=== PATIENT | male | born 1965 | race Caucasian/White ===

== ENCOUNTER 2018-04-11 13:39 | Emergency (ER) | payer MEDICAID ==
[~2018-04-11] VITALS: Ht 172.7 cm; Wt 103.0 kg
[~2018-04-11 13:39] MED LIST: DONNATAL1 TAB PO; PRILOSEC40 MG PO
[2018-04-11 14:00] VITALS: Ht 172.7 cm; Wt 103.0 kg
[2018-04-11 16:22] VITALS: BP 136/86
== END 2018-04-11 16:22 | disposition home or self-care (01) ==
LOC: ED 13:39
DX: S39.012A Strain of muscle, fascia and tendon of lower back, initial encounter (principal); X58.XXXA Exposure to other specified factors, initial encounter; Y93.89 Activity, other specified; Y92.89 Other specified places as the place of occurrence of the external cause; Y99.8 Other external cause status
CPT/HCPCS: J1885

== ENCOUNTER 2018-05-31 17:15 | Emergency (ER) | payer SELFPAY ==
[~2018-05-31] VITALS: Ht 170.2 cm; Wt 103.0 kg
[2018-05-31 17:19] VITALS: Ht 170.2 cm; Wt 103.0 kg
[2018-05-31 18:16] LABS: BASOPHIL % 0.2 % (0-2); PLATELET COUNT 321 x10^3mcL (130-400); RED CELL DISTRIBUTION WIDTH 13.2 % (11.5-14.5)
[2018-05-31 18:24] LABS: CALCIUM 9.7 mg/dL (8.5-10.1); CARBON DIOXIDE 27.6 mmol/L (21-32); CHLORIDE SERUM 101 mmol/L (98-107); CREATININE SERUM 1.1 mg/dL (0.7-1.3); GFR1 > 60 mL/min; GLUCOSE SERUM 116 mg/dL (74-106); POTASSIUM SERUM 4.2 mmol/L (3.5-5.1); SODIUM SERUM 138 mmol/L (136-145)
[2018-05-31 18:31] LABS: ALBUMIN 3.6 g/dL (3.4-5.0); ALKALINE PHOSPHATASE 117 U/L (46-116); ALT/SGPT 31 U/L (16-63); AMYLASE 40 U/L (25-115); AST/SGOT 20 U/L (15-37); BILIRUBIN TOTAL 0.68 mg/dL (0.20-1.00); LIPASE 158 IU/L (73-393); TOTAL PROTEIN, SERUM 7.5 g/dL (6.4-8.2)
[2018-05-31 19:29] VITALS: BP 156/96
== END 2018-05-31 19:29 | disposition home or self-care (01) ==
LOC: ED 17:15
PROVIDERS: Specialist
DX: R10.11 Right upper quadrant pain (principal); R11.0 Nausea
CPT/HCPCS: 83880; J3490; J7030